=== PATIENT | female | born 1980 | race Caucasian/White ===

== ENCOUNTER 2021-01-12 14:53 | Emergency (ER) | payer OTHER, SELFPAY ==
[2021-01-12 15:16] VITALS: BP 122/76; PULSE 89; RESP 16; TEMP 37.1; O2SAT 100
--- NOTE | 2021-01-12 17:14 | ED.URI ---
HPI - URI/Sore Throat General Chief Complaint: Upper Respiratory Infection Stated Complaint: lightheaded headache cough Time Seen by Provider: 01/12/21 17:02 Source: patient and RN notes reviewed Mode of arrival: ambulatory Limitations: no limitations History of Present Illness HPI Narrative: Patient presents today complaining of body aches, headache, fatigue, cough, nausea, shortness of breath with exertion, nasal congestion, lightheadedness and dizziness. She has been taking Tylenol Cold and sinus at home for her symptoms. MD elicited complaint: cough and nasal congestion Related Data Home Medications Medication Instructions Recorded Confirmed bupropion HCl 100 mg PO DAILY 01/12/21 01/12/21 montelukast 10 mg PO DAILY 01/12/21 01/12/21 multivitamin [Daily Multivitamin] 1 tablet PO DAILY 01/12/21 01/12/21 pantoprazole 40 mg PO DAILY 01/12/21 01/12/21 Allergies Allergy/AdvReac Type Severity Reaction Status Date / Time hydrocodone AdvReac Intermediate Nausea and Verified 01/12/21 15:53 Vomiting Review of Systems Review of Systems: CONSTITUTIONAL: Denies fever, chills, or sweats.+ Body aches, fatigue EYES: Denies visual changes, redness, or discharge. ENT: Denies rhinorrhea,sore throat, or otalgia.+ Congestion CARDIOVASCULAR: Denies chest pain, palpitations, or edema. RESPIRATORY: + Cough, shortness of breath with exertion GASTROINTESTINAL: Denies abdominal pain, vomiting, or diarrhea.+ Nausea GENITOURINARY: Denies dysuria or hematuria. SKIN: Denies rash, itching, or wounds. MUSCULOSKELETAL: Denies back pain, joint pain, or myalgia. NEUROLOGIC: Denies numbness, tingling, or weakness.+ Headache, dizziness, lightheadedness PSYCH: Denies depression or anxiety. [facility] History Surgical History (Updated 01/12/21 @ 17:28 by Shilpi Lo, [facility], ) H/O gastric bypass Comments At time of signature, I have reviewed and agree with nursing past medical, surgical, social and family history unless otherwise noted. Please see nursing chart for further information. There is no relevant family history pertinent to the presenting complaint Exam Narrative: GENERAL: Mildly ill-appearing, well-nourished, and in no acute distress. HEAD: Normocephalic, atraumatic. EYES: EOMI. No redness or drainage. Conjunctivae normal. ENT: Mucous membranes pink and moist. Nares clear. No rhinorrhea. TMs normal bilaterally. Throat normal. Uvula midline. NECK: Normal AROM. Supple. No lymphadenopathy. CHEST: No respiratory distress. Clear to auscultation. HEART: Regular rate and rhythm. No murmur appreciated. Normal peripheral pulses. EXTREMITIES: Normal range of motion. No edema. SKIN: Warm, dry, no rash. Capillary refill normal. Normal skin turgor. NEURO: No focal deficits. Alert and oriented x3. Gait steady. PSYCH: Normal affect. No signs of depression or anxiety. Course Vital Signs Vital signs: Vital Signs Temperature 98.7 F 01/12/21 15:16 Pulse Rate 89 01/12/21 15:16 Respiratory Rate 16 01/12/21 15:16 Blood Pressure 122/76 01/12/21 15:16 Pulse Oximetry 100 01/12/21 15:16 Temperature 98.7 F 01/12/21 15:16 Pulse Rate 89 01/12/21 15:16 Respiratory Rate 16 01/12/21 15:16 Blood Pressure 122/76 01/12/21 15:16 Pulse Oximetry 100 01/12/21 15:16 Reviewed. Pt has been instructed to follow up with her PCP regarding her elevated blood pressure today. MDM - URI/Sore Throat Differential Diagnosis Differential diagnosis: Likely upper respiratory infection, viral infection and other (COVID-19, influenza) Lab Data Attestation: I reviewed the patient's lab results. Lab results narrative: Rapid COVID-19 test positive Critical Care Time Critical Care Time Critical Care Time: No Discharge Plan Discharge Clinical Impression: COVID-19 Patient Disposition: Home, Self-Care Condition: Stable Instructions: COVID-19 (Coronavirus Disease 2019) (ED) Additional Instructions: Jessika
== END 2021-01-12 17:45 | disposition home or self-care (01) ==
PROVIDERS: Emergency Provider Nurse Practitioner
DX: U07.1 COVID-19 (principal); Z98.84 Bariatric surgery status
CPT/HCPCS: 87426; 87804; 99213; C9803; G0463